=== PATIENT | female | born 1950 | race Caucasian/White ===

== ENCOUNTER 2016-08-02 19:18 | Emergency (ER) | payer BC, MEDICARE ==
[~2016-08-02] VITALS: Ht 165.1 cm; Wt 56.2 kg
[2016-08-02 19:52] VITALS: BP 135/77
== END 2016-08-02 20:01 | disposition left against medical advice (07) ==
LOC: ER 19:18
DX: R10.9 Unspecified abdominal pain (principal); K57.92 Diverticulitis of intestine, part unspecified, without perforation or abscess without bleeding; Z53.21 Procedure and treatment not carried out due to patient leaving prior to being seen by health care provider